=== PATIENT | female | born 1995 ===

== ENCOUNTER 2022-12-12 05:31 | Outpatient (CLI) | payer SELFPAY ==
[~2022-12-12] VITALS: Wt 66.4 kg
== END 2022-12-12 13:08 ==
LOC: PREOP 05:31
PROVIDERS: ATTEND Obstetrics & Gynecology
DX: Z01.818 Encounter for other preprocedural examination (principal)

== ENCOUNTER 2022-12-19 00:01 | Inpatient (IN) | payer OTHER ==
[~2022-12-19] VITALS: Ht 154.9 cm; Wt 66.5 kg
[2022-12-19] VITALS (9 sets, daily range): BP systolic 112–135; BP diastolic 71–93
[2022-12-19] MEDS ORDERED: METOCLOPRAMIDE INJ 10 MG/2 ML (REGLAN) IV ONE (08:15)
[2022-12-19] MEDS ORDERED: CATHETER FLUSH 10 ML SYR IV PRN (08:15)
[2022-12-19] MEDS ORDERED: CITRIC ACID/SOB CIT (BICITRA) 30 ML UDC PO ONE (08:15)
[2022-12-19] MEDS ORDERED: LACTATED RINGERS 1,000 ML IV PRN (08:15)
[2022-12-19] MEDS ORDERED: ceFAZolin INJECTION 2,000 MG in NS (IVPB) 50 ML IV ONE (08:15)
[2022-12-19 08:42] LABS: BASOPHILS % (AUTO) 1 % (0-10); EOSINOPHILS # (AUTO) 0.1 10^3/uL (0.0-0.3); EOSINOPHILS % (AUTO) 1 % (0-10); HEMATOCRIT 38 % (35-52); HEMOGLOBIN 12.7 g/dL (11.5-16.0); LYMPHOCYTES # (AUTO) 1.9 10^3/uL (1.0-4.0); LYMPHOCYTES % (AUTO) 23 % (12-44); MEAN CORPUSCULAR HEMOGLOBIN 28 pg (25-34); MEAN CORPUSCULAR HGB CONC 33 g/dL (32-36); MEAN CORPUSCULAR VOLUME 85 fL (80-99); MEAN PLATELET VOLUME 12.3 fL (9.0-12.2); MONOCYTES # (AUTO) 0.6 10^3/uL (0.0-1.0); MONOCYTES % (AUTO) 7 % (0-12); NEUTROPHILS # (AUTO) 5.6 10^3/uL (1.8-7.8); NEUTROPHILS % (AUTO) 68 % (42-75); PLATELET COUNT 177 10^3/uL (130-400); WHITE BLOOD COUNT 8.2 10^3/uL (4.3-11.0)
[2022-12-19] MEDS: LACTATED RINGERS 1,000 ML IV PRN ×2 (08:45→09:33)
--- NOTE | 2022-12-19 09:22 | History & Physical-OB ---
OB - Chief Complaint & HPI Date/Time Date of Admission: Date of Admission: Dec 19, 2022 at 07:54 Date seen by a Provider: Dec 19, 2022 Time Seen by a Provider: 09:00 Chief Complaint/History OB-Reason for Admission/Chief: Section Hx : 2 Hx Para: 1 Expected Date of Delivery: Dec 26, 2022 Gestational Age in Weeks: 39 Gestational Age in Days: 0 Indication for : desires repeat Admission Nurse Assessment Rev: Yes History of Labs See [facility] PNL Allergies and Home Medications Allergies Coded Allergies: No Known Drug Allergies (Unverified , 12/12/22) Patient Home Medication List Home Medication List Reviewed: Yes No Active Prescriptions or Reported Meds OB - History Hx of Present Care: Yes Ultrasounds: Normal mid trimester US Obstetrical Complications: None Medical Complications: None Patient Past Medical History nc Immunizations First/Initial COVID19 Vaccine: 03/2022 Second COVID19 Vaccination: 03/2022 OB - Admission Exam Physical Exam HEENT: NCAT Heart: Rhythm Normal Lungs: Clear Abdomen: Gravid Extremities: Normal Reflexes: Normal Heart Rate: 130's Accelerations: Accelerations Present Decelerations: No Decelerations Short Term Variability: Present Detention Variability: Average (6-25) Contractions on Admission: >10 Minutes Apart Intensity: Mild Labs Laboratory Tests Test 12/19/22 08:30 Range/Units White Blood Count 8.2 4.3-11.0 10^3/uL Red Blood Count 4.49 3.80-5.11 10^6/uL Hemoglobin 12.7 11.5-16.0 g/dL Hematocrit 38 35-52 % Mean Corpuscular Volume 85 80-99 fL Mean Corpuscular Hemoglobin 28 25-34 pg Mean Corpuscular Hemoglobin Concent 33 32-36 g/dL Red Cell Distribution Width 14.4 10.0-14.5 % Platelet Count 177 130-400 10^3/uL Mean Platelet Volume 12.3 H 9.0-12.2 fL Immature Granulocyte % (Auto) 1 % Neutrophils (%) (Auto) 68 42-75 % Lymphocytes (%) (Auto) 23 12-44 % Monocytes (%) (Auto) 7 0-12 % Eosinophils (%) (Auto) 1 0-10 % Basophils (%) (Auto) 1 0-10 % Neutrophils # (Auto) 5.6 1.8-7.8 10^3/uL Lymphocytes # (Auto) 1.9 1.0-4.0 10^3/uL Monocytes # (Auto) 0.6 0.0-1.0 10^3/uL Eosinophils # (Auto) 0.1 0.0-0.3 10^3/uL Basophils # (Auto) 0.0 0.0-0.1 10^3/uL Immature Granulocyte # (Auto) 0.0 0.0-0.1 10^3/uL OB - Assessment/Plan/Diagnosis Assessment Assessment: section Admission Dx 27 yo @ 39 weeks Previous Admission Status: Inpatient Order (span 2 midnights) Reason for Inpatient Admission: Repeat at 39 weeks Plan Plan: Section SILVESTRE FRY DO Dec 19, 2022 09:22
--- NOTE | 2022-12-19 09:25 | Discharge Inst-Women's Service ---
Discharge Inst-Women's Serv Depart Medication/Instructions New, Converted or Re-Newed RX: Transmitted to Pharmacy Final Diagnosis POD 2 RLTCS Problems Reviewed?: Yes Consults/Follow Up Additional Follow Up: Yes Orders/Referrals Dr. Ospina in 7-10 days and [facility] in 6 weeks Activity Activity: Activity as Tolerated Driving Instructions: No Driving for 1 Week NO SMOKING: NO SMOKING Nothing Inside Vagina: No Douching, No [place], No Tampons Diet Discharge Diet: No Restrictions Symptoms to Report to : Bleeding Excessive, Pain Increased, Fever Over 101 Degrees F, Vaginal Bleeding Increase, Questions/Concerns For Any Problems or Questions: Contact Your Physician Skin/Wound Care Infection Signs and Symptoms: Increased Redness, Foul Odor of Wound, Increased Drainage, Skin Itchy or Has a Rash, Increased Swelling, Temperature Above 101 F Operative Area Clean and Dry: Keep Incision Clean/Dry Stitches/[place]/Dermabond: Dermabond, Care of Stitches Bathing Instructions: SILVESTRE Blackburn DO Dec 19, 2022 09:25
[2022-12-19] MEDS ORDERED: DOCU100C37 PO (09:26)
[2022-12-19] MEDS ORDERED: ACHD5005 PO (09:26)
[2022-12-19] MEDS ORDERED: IBUP-844 PO (09:26)
[2022-12-19] MEDS ORDERED: OXYTOCIN PRE-MIX DRIP 500 ML IV SCH (09:30)
[2022-12-19] MEDS ORDERED: NALOXONE 0.4 MG/ML 1 ML (NARCAN) VIAL IV PRN (09:30)
[2022-12-19] MEDS ORDERED: TETANUS,DIPTH,PERTUSS P/F (BOOSTRIX) 0.5 ML VIAL IM SCH (09:30)
[2022-12-19] MEDS ORDERED: MEASLES,MUMPS,RUBELLA 1 EA INJ SC SCH (09:30)
[2022-12-19] MEDS ORDERED: ONDANSETRON 4 MG/2 ML (SDV) Z0FRAN IVP PRN (09:30)
[2022-12-19] MEDS ORDERED: FAMOTIDINE 20MG/2ML IV (PEPCID) IV ONE (10:00)
[2022-12-19] MEDS ORDERED: fentaNYL INJ 100 MCG/2 ML AMP ONE (10:17)
[2022-12-19] MEDS ORDERED: OXYTOCIN PRE-MIX DRIP 500 ML IV ONE (10:17)
[2022-12-19] MEDS ORDERED: ROPIVACAINE 5MG/ML 30ML VIAL ONE (10:20)
[2022-12-19] MEDS: KETOROLAC 30 MG/ML VIAL IV SCH ×2 (13:16→19:01)
[2022-12-19] MEDS: HYDROcodone/APAP 5 MG/325 MG (LORTAB) TAB PO PRN (16:12)
--- NOTE | 2022-12-19 18:37 | OPERATIVE REPORT ---
PREOPERATIVE DIAGNOSES: 1. A 27-year-old at 39 weeks' gestation. 2. Previous section. POSTOPERATIVE DIAGNOSES: 1. A 27-year-old at 39 weeks' gestation. 2. Previous section. PROCEDURE: Repeat low transverse section. SURGEON: Denis Fry DO SOLVENT PROCESS EXTRACTOR OPERATOR: Mulu Jimenez DNP, was necessary for manipulation and retraction throughout the procedure. ANESTHESIA: Spinal. ESTIMATED BLOOD LOSS: 200 mL URINE OUTPUT: 200 mL clear at end of procedure. FLUIDS: 800 mL lactated Ringer's solution. FINDINGS: A live male infant, weighing 7 pounds 4 ounces, Apgars of 8 and 9. Grossly normal appearing uterus, bilateral fallopian tubes, and ovaries. SPECIMEN SENT: None. INDICATIONS FOR PROCEDURE: This is a 27-year-old female. The patient had sought care with Dr Lala at the [facility]. Her care was uncomplicated with the exception of needing repeat . Risks of procedure discussed with the patient in detail, and after all of her questions were answered, she was agreeable to proceed. Consent was obtained in the preoperative area and the patient was taken to the operating room. OPERATIVE REPORT IN DETAIL: Once in the operating room, spinal analgesia was administered and found to be adequate, was placed in supine position with leftward tilt, prepped and draped in normal sterile fashion. Timeout was performed. Anesthesia was tested. I then made a Pfannenstiel skin incision through a preexisting scar using knife and carried down to underlying fascia using Bovie cautery. The fascial incision extended laterally using Bovie cautery. The superior aspect of fascial incision was then grasped with Nino clamps, tented up, and dissected off the underlying rectus muscles. The inferior aspect of fascial incision was then grasped with Nino clamps, tented up, and dissected off overlying rectus muscles. Rectus muscles were dissected down the midline, which exposed the peritoneum. I then entered the peritoneum using blunt traction and extended using blunt traction. Luke ring retractor was placed in the peritoneal incision, which offers excellent lateral sidewall retraction. I identified lower uterine segment, was found to be thinned out. I made a low transverse incision to the vesicouterine peritoneum and bluntly dissected off the lower uterine segment, creating a bladder flap. I then proceeded with myotomy until membranes were visualized at which point I extended the uterine incision laterally and superiorly using bandage scissors. Amniotomy was then performed using Allis clamp. Clear fluid was noted. The was found in vertex presentation. With gentle fundal pressure, the infant's head was elevated and delivered through the incision where the nares and oropharynx were bulb suctioned. Anterior and posterior shoulders were delivered. The infant was brought to the operative field where cords were clamped and cut and was handed off to waiting nurses in attendance. Cord blood was collected. Three-vessel cord with intact placenta was delivered spontaneously thereafter. IV Pitocin was initiated to facilitate uterine contraction. Uterine fundus confirmed by manual massage. The uterus was then exteriorized and cleared off all endometrial clots and debris. I then proceeded with closing the uterine incision using 0 Vicryl suture in a running locked fashion. Second layer of the imbricating 0 Monocryl was placed. Excellent hemostasis was noted after doing this. I then placed the uterus back in the pelvis and copiously irrigated the pelvis using normal saline. Once again, there was no active bleeding noted from any of my dissection planes. I placed Interceed antiadhesive over my low transverse incision. I removed the Luke ring retractor and then proceeded with closing the peritoneum using 3-0 Vicryl suture in a running fashion. The rectus muscles were reapproximated using 3-0 Vicryl suture in interrupted fashion. The fascia was reapproximated using 0 Vicryl suture in a running fashion and the skin reapproximated using 4-0 Monocryl in a running subcuticular. Dermabond was applied to incision and sterile dressing with adhesive white tape. The patient tolerated the procedure well and was taken to recovery area in stable condition. Lap and sponge counts were correct at the end of the procedure. Instrument counts correct as well. Two grams of Ancef given preoperatively for infection prophylaxis. Job ID: [id number] DocumentID: [id number] Dictated Date: 12/19/2022 12:30:02 Casing Sewer Date: 12/19/2022 18:02:00 Dictated By: DENIS FRY DO
[2022-12-19] MEDS: CATHETER FLUSH 10 ML SYR IV SCH (19:38)
[2022-12-19] MEDS: DOCUSATE SODIUM 100 MG (COLACE) CAP PO SCH (20:13)
[2022-12-20 03:36] VITALS: BP 122/75
[2022-12-20] MEDS: KETOROLAC 30 MG/ML VIAL IV SCH (03:36)
[2022-12-20] MEDS: CATHETER FLUSH 10 ML SYR IV SCH (03:36)
[2022-12-20] MEDS: SIMETHICONE 80 MG (MYLICON) CHEW PO SCH ×5 (04:02→21:06)
[2022-12-20 05:35] LABS: BASOPHILS % (AUTO) 1 % (0-10); EOSINOPHILS # (AUTO) 0.1 10^3/uL (0.0-0.3); EOSINOPHILS % (AUTO) 1 % (0-10); HEMATOCRIT 31 % (35-52); HEMOGLOBIN 10.4 g/dL (11.5-16.0); LYMPHOCYTES # (AUTO) 1.1 10^3/uL (1.0-4.0); LYMPHOCYTES % (AUTO) 13 % (12-44); MEAN CORPUSCULAR HEMOGLOBIN 29 pg (25-34); MEAN CORPUSCULAR HGB CONC 33 g/dL (32-36); MEAN CORPUSCULAR VOLUME 86 fL (80-99); MEAN PLATELET VOLUME 12.1 fL (9.0-12.2); MONOCYTES # (AUTO) 0.6 10^3/uL (0.0-1.0); MONOCYTES % (AUTO) 6 % (0-12); NEUTROPHILS # (AUTO) 6.9 10^3/uL (1.8-7.8); NEUTROPHILS % (AUTO) 79 % (42-75); PLATELET COUNT 164 10^3/uL (130-400); WHITE BLOOD COUNT 8.7 10^3/uL (4.3-11.0)
[2022-12-20] MEDS: HYDROcodone/APAP 5 MG/325 MG (LORTAB) TAB PO PRN ×3 (06:15→21:05)
--- NOTE | 2022-12-20 07:05 | Postpartum Progress Note ---
Note Note Day # 1 Subjective: Patient is without complaints. Ambulating, voiding. Tolerating a regular diet without nausea or vomiting. Normal lochia. Pain is well controlled with oral pain medications. Objective: Physical Exam: General - Alert and oriented, no apparent distress Abdomen - Soft, appropriately tender to palpation, non-distended, fundus firm at umbilicus Extremities - no edema, negative Zain's bilaterally Incision- c/d/i Assessment: POD 1 RLTCS Acute blood loss anemia Plan: Routine care. Encourage breast feeding. Encourage ambulation. Ferrous sulfate supplementation. Plan for discharge tomorrow Vitals - Labs Vital Signs - I&O Vital Signs Date Time Temp Pulse Resp B/P (MAP) Pulse Ox O2 Delivery O2 Flow Rate FiO2 12/20/22 03:36 36.6 82 18 122/75 (91) 97 Room Air 12/19/22 23:30 36.5 78 18 116/73 (87) 97 Room Air 12/19/22 20:13 36.3 75 18 118/78 (91) 97 Room Air 12/19/22 17:09 37.1 82 18 123/75 (91) 98 Room Air 12/19/22 14:10 36.5 62 18 128/76 (93) 99 Room Air 12/19/22 13:21 Room Air 12/19/22 13:19 36.0 18 129/83 (98) 99 Room Air 12/19/22 13:11 Room Air 12/19/22 13:03 36.0 18 117/93 (101) 99 Room Air 12/19/22 12:56 Room Air 12/19/22 12:49 36.0 18 112/75 (87) 99 Room Air 12/19/22 12:42 Room Air 12/19/22 12:34 36.3 18 116/71 (86) 99 Room Air 12/19/22 08:05 36.5 76 18 100 Room Air I & O 12/20/22 07:00 Intake Total 2350 ml Output Total 500 ml Balance 1850 ml Labs Laboratory Tests 12/19/22 08:30: White Blood Count 8.2, Red Blood Count 4.49, Hemoglobin 12.7, Hematocrit 38, Mean Corpuscular Volume 85, Mean Corpuscular Hemoglobin 28, Mean Corpuscular Hemoglobin Concent 33, Red Cell Distribution Width 14.4, Platelet Count 177, Mean Platelet Volume 12.3H, Immature Granulocyte % (Auto) 1, Neutrophils (%) (Auto) 68, Lymphocytes (%) (Auto) 23, Monocytes (%) (Auto) 7, Eosinophils (%) (Auto) 1, Basophils (%) (Auto) 1, Neutrophils # (Auto) 5.6, Lymphocytes # (Auto) 1.9, Monocytes # (Auto) 0.6, Eosinophils # (Auto) 0.1, Basophils # (Auto) 0.0, Immature Granulocyte # (Auto) 0.0 12/20/22 05:28: White Blood Count 8.7, Red Blood Count 3.63L, Hemoglobin 10.4L, Hematocrit 31L, Mean Corpuscular Volume 86, Mean Corpuscular Hemoglobin 29, Mean Corpuscular Hemoglobin Concent 33, Red Cell Distribution Width 14.5, Platelet Count 164, Mean Platelet Volume 12.1, Immature Granulocyte % (Auto) 0, Neutrophils (%) (Auto) 79H, Lymphocytes (%) (Auto) 13, Monocytes (%) (Auto) 6, Eosinophils (%) (Auto) 1, Basophils (%) (Auto) 1, Neutrophils # (Auto) 6.9, Lymphocytes # (Auto) 1.1, Monocytes # (Auto) 0.6, Eosinophils # (Auto) 0.1, Basophils # (Auto) 0.0, Immature Granulocyte # (Auto) 0.0 SILVESTRE FRY DO Dec 20, 2022 07:05
[2022-12-20 09:45] VITALS: BP 107/66
[2022-12-20] MEDS: DOCUSATE SODIUM 100 MG (COLACE) CAP PO SCH ×2 (09:47→21:06)
[2022-12-20] MEDS: IBUPROFEN 600 MG (MOTRIN) TAB PO SCH ×3 (09:49→23:04)
--- NOTE | 2022-12-20 09:59 | Anesthesia-Regional Post-Op ---
Regional Patient Condition Mental Status: Alert, Oriented x3 Circulation: Same as Pre-Op Headache: Absent Sensation: Full Recovery Motor Block: Absent Post Op Complications Complications None Follow Up Care/Instructions Patient Instructions None needed. Anesthesia/Patient Condition Patient is doing well, no complaints, stable vital signs, no apparent adverse anesthesia problems. No complications reported per nursing. VICENTE ROWE CRNA Dec 20, 2022 09:59
[2022-12-20 13:12] VITALS: BP 115/68
[2022-12-20 16:52] VITALS: BP 121/78
[2022-12-20 23:00] VITALS: BP 133/85
[2022-12-21] MEDS: KETOROLAC 30 MG/ML VIAL IV SCH (01:29)
[2022-12-21 04:55] VITALS: BP 117/71
[2022-12-21] MEDS: IBUPROFEN 600 MG (MOTRIN) TAB PO SCH ×2 (04:55→11:52)
[2022-12-21] MEDS: HYDROcodone/APAP 5 MG/325 MG (LORTAB) TAB PO PRN ×2 (04:55→11:53)
--- NOTE | 2022-12-21 08:49 | Postpartum Progress Note ---
Note Note Day # 2 Subjective: Patient is without complaints. Ambulating, voiding. Tolerating a regular diet without nausea or vomiting. Normal lochia. Pain is well controlled with oral pain medications. Fo rmula feeding. [] Objective: [] Physical Exam: General - Alert and oriented, no apparent distress Breast symmetrical no erythema or engorgement Abdomen - Soft, appropriately tender to palpation, non-distended, fundus firm at umbilicus Incision clean, dry and intact no erythema Lochia minimal Extremities - no edema, negative Zain's bilaterally Assessment: [] post- day # 2 status post low transverse delivery. Recovering well, hemodynamically stable Plan: Routine care. Encourage breast feeding. Encourage ambulation. Ferrous sulfate supplementation. Plan for discharge today Vitals - Labs Vital Signs - I&O Vital Signs Date Time Temp Pulse Resp B/P (MAP) Pulse Ox O2 Delivery O2 Flow Rate FiO2 12/21/22 04:55 36.4 70 18 117/71 (86) 99 Room Air 12/20/22 23:00 36.3 70 18 133/85 (101) 100 Room Air 12/20/22 16:52 36.5 87 18 121/78 (92) 97 Room Air 12/20/22 13:12 36.3 87 18 115/68 (84) 97 Room Air 12/20/22 09:45 36.4 85 18 107/66 (80) 97 Room Air I & O 12/21/22 07:00 Intake Total 1700 ml Output Total 700 ml Balance 1000 ml POWER SWAIN DO Dec 21, 2022 08:49
[2022-12-21 09:00] VITALS: BP 117/75
[2022-12-21] MEDS: DOCUSATE SODIUM 100 MG (COLACE) CAP PO SCH (09:09)
[2022-12-21] MEDS: SIMETHICONE 80 MG (MYLICON) CHEW PO SCH (09:10)
[2022-12-21 13:15] VITALS: BP 116/74
[2022-12-21 13:35] VITALS: BP 116/74
== END 2022-12-21 13:35 | disposition home or self-care (01) | DRG 787 ==
LOC: LDRP 07:54
PROVIDERS: ADMIT Obstetrics & Gynecology; ATTEND Obstetrics & Gynecology
PROC: 10D00Z1 Extraction of Products of Conception, Low, Open Approach (ICD-10-PCS; principal; 2022-12-19 11:33)
DX: O34.211 Maternal care for low transverse scar from previous cesarean delivery (principal); D62 Acute posthemorrhagic anemia; Z3A.39 39 weeks gestation of pregnancy; Z37.0 Single live birth; O90.81 Anemia of the puerperium
CPT/HCPCS: 36415; 85025; 85027; 86850; 86900; 86901